=== PATIENT | female | born 1980 | race Caucasian/White ===

== ENCOUNTER 2020-11-22 04:51 | Emergency (ER) | payer BC, SELFPAY ==
--- NOTE | ~2020-11-22 | CT_ITS ---
EXAMINATION: CT ABDOMEN AND PELVIS WITHOUT CONTRAST CLINICAL INFORMATION: Flank pain, history of kidney stones. COMPARISON: CT abdomen and pelvis 09/23/2019 TECHNIQUE: Multidetector volumetric imaging was performed from the superior aspect of the liver through the pubic symphysis. Sagittal and coronal reformatted images were obtained on the technologist's workstation. This CT examination was performed using dose optimization techniques as appropriate, variously including the following: *Automated exposure control *Adjustment of mA and/or kV according to patient size (this includes techniques or standardized protocols for targeted exams where dose is matched to indication/reason for exam; i.e. extremities or head) *Use of iterative reconstruction technique DLP: 779.5 mGy-cm FINDINGS: LUNG BASES: The visualized lung bases are unremarkable. LIVER, GALLBLADDER, AND BILIARY TREE: The liver is normal in size, shape, and attenuation. No focal hepatic lesion or biliary ductal dilatation is present. Gallbladder is unremarkable and there are no radiopaque gallstones. PANCREAS: Unremarkable. SPLEEN: Unremarkable. ADRENAL GLANDS: Unremarkable. KIDNEYS AND URETERS: There is mild right hydroureteronephrosis. There is a 4 x 2 mm calculus just beyond or at the right ureterovesicular junction. No other renal calculi are identified. No renal lesions are present. There is no perinephric stranding. BLADDER: As noted above there is a 4 x 2 mm right bladder calculus which is either at or just beyond the ureterovesicular junction. GASTROINTESTINAL TRACT: Distal esophagus and stomach are unremarkable. The small and large bowel are nondilated. There is a normal appendix. There is no pericolonic inflammatory change or bowel inflammatory change. ABDOMINAL WALL: No significant hernia is appreciated. LYMPH NODES: Normal. VASCULAR: Unremarkable. PELVIC VISCERA: Unremarkable. OSSEOUS STRUCTURES: Mild degenerative change at the L5-S1 level. No acute or aggressive bony abnormality. CT/CT abdomen pelvis wo con IMPRESSION: Mild right hydroureteronephrosis with a 4 x 2 mm calculus just beyond or at the right ureterovesicular junction.
[2020-11-22 05:32] VITALS: BP 117/68; PULSE 83; RESP 20; TEMP 36.6; O2SAT 97; BMI 35.2
[2020-11-22 06:06] LABS: MANUAL DIFF FLAG NO
[2020-11-22 06:07] LABS: Basophils Percent Auto 0.2 % (0-2); Eosinophils Absolute Auto 0.2 X10*3/uL (0.0-0.4); Eosinophils Percent Auto 2.2 % (0-4); Hematocrit 44.4 % (37-47); Hemoglobin 14.6 g/dl (12.0-16.0); Imm Gran Abs Auto 0.03 X10*3/uL (0.00-0.03); Imm Gran Pct Auto 0.3 % (0.0-0.4); Lymphocytes Percent Auto 23.7 % (20-40); Mean Corpuscular HGB Conc 32.9 g/dl (31.0-35.0); Mean Corpuscular Hemoglobin 29.7 pg (27.0-33.0); Mean Corpuscular Volume 90.4 fL (80-98); Mean Platelet Volume 8.7 fL (9.4-12.3); Monocytes Absolute Auto 0.7 X10*3/uL (0.1-1.2); Monocytes Percent Auto 7.7 % (2-11); Neutrophils Absolute Auto 5.7 X10*3/uL (2.0-8.3); Neutrophils Percent Auto 65.9 % (45-73); Platelet Count 344 X10*3/uL (160-400); Red Blood Count 4.91 X10*6/uL (4.20-5.50); Red Cell Distribution Width 12.6 % (11.0-16.0); White Blood Count 8.6 X10*3/uL (4.8-10.8)
[2020-11-22 06:20] LABS: Appearance Urine HAZY; Color Urine YELLOW; Glucose Urine UA NEG (NEG); Leukocyte Esterase Urine NEG (NEG); Nitrite Urine NEG (NEG); Specific Gravity - Urine >= 1.030 (1.005-1.025); Urine Blood 2+ (NEG); Urine Ketones NEG (NEG); Urine Protein NEG (NEG-TRACE)
[2020-11-22 06:30] LABS: Bacteria Urine 2+ /LPF; Calcium Oxalate Crystals Urine 2+ /LPF; Mucus Urine 2+ /LPF; Squamous Epithelial Cell Urine 3+ /LPF
--- NOTE | 2020-11-22 06:35 | ED.ABDPAIN ---
HPI - Abdominal Pain General Chief Complaint: Abdominal Pain Stated Complaint: kidney stones Time Seen by Provider: 11/22/20 06:35 Source: patient Mode of arrival: ambulatory Limitations: no limitations History of Present Illness HPI narrative: 40 yo female hx of kidney stones requiring ESWL in the past at this time c/o sharp R flank pain sudden onset with n/v and urinary symptoms feels like a prior stone MD elicited complaint: flank pain Pertinent past history: kidney stones Onset (ago): hour(s) Pain Consistency: constant Location: R flank Severity: severe Quality: stabbing Radiation: none Migration to: no migration Exacerbating factors: nothing Relieving factors: nothing Associated symptoms: nausea, vomiting, diarrhea and dysuria Related Data Previous Rx's Medication Instructions Recorded ondansetron 4 mg PO Q8H PRN #20 tab 11/22/20 oxycodone 5 mg PO Q6H PRN #20 tab 11/22/20 prednisone 40 mg PO DAILY 5 Days #10 tab 11/22/20 tamsulosin 0.4 mg PO DAILY 7 Days #7 cap 11/22/20 Allergies Allergy/AdvReac Type Severity Reaction Status Date / Time No Known Allergies Allergy Unverified 11/22/20 05:31 [No Known Allergies*] Review of Systems Review of Systems Constitutional : No Weight loss, No Fever, No Chills ENT/Mouth : No sore throat, No Rhinorrhea Eyes: No Swelling, No Redness Cardiovascular : No Chest Pain, No SOB, NoEdema Respiratory : No Cough, No Sputum, No Wheezing Gastrointestinal : Positive Nausea, Positive Vomiting, positive Diarrhea, positive abdominal Pain, No Hematochezia, No Melena Genitourinary : pos Dysuria, No Urinary Frequency, No Hematuria, No Urgency Musculoskeletal : No joint pain, No Myalgias, No Joint Swelling Skin : No Skin Lesions, No rash Neuro : No Weakness, No Numbness, No Dizziness, No Headache Psych : No Anxiety/Panic, No Depression Heme/Lymph: No Bruising, No Lymphadenopathy Endocrine : No Polyuria, No Polydipsia All other systems reviewed and are negative. Physical Exam Vital Signs: Vital Signs: Last Vital Signs Temp 97.9 F 11/22/20 05:32 Pulse 69 11/22/20 07:05 Resp 20 11/22/20 05:32 BP 109/80 11/22/20 07:05 Pulse Ox 96 11/22/20 07:05 Body Mass Index 35.2 Appearance: Alert. Oriented X3. No acute distress. Eyes: Pupils equal, round and reactive to light. ENT: Pharynx normal. Neck: Normal inspection. Neck supple. CVS: Normal heart rate and rhythm. Pulses normal. Respiratory: No respiratory distress. Breath sounds normal. Abdomen: Soft and mild R sided ttp no rebound or guarding Back: mild R CVA ttp Skin: Skin warm and dry. Normal skin color. Normal skin turgor. Extremities: No lower extremity edema. No calf ttp Neuro: Oriented X 3. No motor deficit. No sensory deficit. Course Course Course Narrative: stone at UVJ - pain well controlled, will attempt to pass at home, stable for DC MDM - Abdominal Pain MDM Narrative Medical decision making narrative: 40 yo female hx of kidney stones requiring ESWL in the past at this time c/o sharp R flank pain sudden onset with n/v and urinary symptoms feels like a prior stone at this time labs, UA, CT scan for renal colic, IV zofran/toradol for pain, dispo per results and findings. Differential Diagnosis Differential diagnosis: Likely abdominal pain, calculus of kidney, constipation, diverticulitis and renal colic; Unlikely acute appendicitis Lab Data Result diagrams: 11/22/20 06:01 11/22/20 06:01 Labs: Lab Results 11/22/20 11/22/20 11/22/20 Range/Units 06:01 06:01 06:01 WBC 8.6 (4.8-10.8) X10*3/uL RBC 4.91 (4.20-5.50) X10*6/uL Hgb 14.6 (12.0-16.0) g/dl Hct 44.4 (37-47) % MCV 90.4 (80-98) fL MCH 29.7 (27.0-33.0) pg MCHC 32.9 (31.0-35.0) g/dl RDW 12.6 (11.0-16.0) % Plt Count 344 (160-400) X10*3/uL MPV 8.7 L (9.4-12.3) fL Immature Gran % (Auto) 0.3 (0.0-0.4) % Neut % (Auto) 65.9 (45-73) % Lymph % (Auto) 23.7 (20-40) % [place] % (Auto) 7.7 (2-11) % Eos % (Auto) 2.2 (0-4) % Baso % (Auto) 0.2 (0-2) % Lymph # (Auto) 2.0 (1.2-4.9) X10*3/uL [place] # (Auto) 0.7 (0.1-1.2) X10*3/uL Eos # (Auto) 0.2 (0.0-0.4) X10*3/uL Baso # (Auto) 0.0 (0.0-0.2) X10*3/uL Abs Immat Gran (auto) 0.03 (0.00-0.03) X10*3/uL Absolute Neuts (auto) 5.7 (2.0-8.3) X10*3/uL Absolute Nucleated RBC 0.000 (0.0-0.012) X10*3/uL Nucleated RBC % (auto) 0.0 (0.0-0.2) /100WBC Hold Blue Top SEE NOTE Sodium 141 (135-145) mmol/L Potassium 4.6 (3.3-5.1) mmol/L Chloride 108 (96-108) mmol/L Carbon Dioxide 28 (22-29) mmol/L Anion Gap 10 L (12-20) BUN 19 H (9-16) mg/dL Creatinine 0.91 (0.5-1.4) mg/dL Estim Creat Clear Calc 84.2 Estimated GFR > 60 Random Glucose 82 (60-115) mg/dL Calcium 9.7 (8.4-10.2) mg/dL Total Bilirubin 0.4 (0.0-1.0) mg/dL AST 18 (5-31) U/L ALT 15 (0-31) U/L Alkaline Phosphatase 101 (39-117) U/L Total Protein 7.1 (6.5-8.0) g/dL Albumin 4.4 (3.5-5.0) g/dL Urine Color Urine Appearance Urine pH (5.0-8.0) Ur Specific [place] (1.005-1.025) Urine Protein (NEG-TRACE) MG/DL Urine Glucose (UA) (NEG) MG/DL Urine Ketones (NEG) MG/DL Urine Blood (NEG) Urine Nitrite (NEG) Ur Leukocyte Esterase (NEG) Urine RBC (0) /HPF Urine WBC (0-4) /HPF Ur Squamous Epith Cells /LPF Calcium Oxalate Crystal /LPF Urine Bacteria /LPF Urine Mucus /LPF 11/22/20 Range/Units 06:15 WBC (4.8-10.8) X10*3/uL RBC (4.20-5.50) X10*6/uL Hgb (12.0-16.0) g/dl Hct (37-47) % MCV (80-98) fL MCH (27.0-33.0) pg MCHC (31.0-35.0) g/dl RDW (11.0-16.0) % Plt Count (160-400) X10*3/uL MPV (9.4-12.3) fL Immature Gran % (Auto) (0.0-0.4) % Neut % (Auto) (45-73) % Lymph % (Auto) (20-40) % [place] % (Auto) (2-11) % Eos % (Auto) (0-4) % Baso % (Auto) (0-2) % Lymph # (Auto) (1.2-4.9) X10*3/uL [place] # (Auto) (0.1-1.2) X10*3/uL Eos # (Auto) (0.0-0.4) X10*3/uL Baso # (Auto) (0.0-0.2) X10*3/uL Abs Immat Gran (auto) (0.00-0.03) X10*3/uL Absolute Neuts (auto) (2.0-8.3) X10*3/uL Absolute Nucleated RBC (0.0-0.012) X10*3/uL Nucleated RBC % (auto) (0.0-0.2) /100WBC Hold Blue Top Sodium (135-145) mmol/L Potassium (3.3-5.1) mmol/L Chloride (96-108) mmol/L Carbon Dioxide (22-29) mmol/L Anion Gap (12-20) BUN (9-16) mg/dL Creatinine (0.5-1.4) mg/dL Estim Creat Clear Calc Estimated GFR Random Glucose (60-115) mg/dL Calcium (8.4-10.2) mg/dL Total Bilirubin (0.0-1.0) mg/dL AST (5-31) U/L ALT (0-31) U/L Alkaline Phosphatase (39-117) U/L Total Protein (6.5-8.0) g/dL Albumin (3.5-5.0) g/dL Urine Color YELLOW Urine Appearance HAZY Urine pH 6.0 (5.0-8.0) Ur Specific [place] >= 1.030 H (1.005-1.025) Urine Protein NEG (NEG-TRACE) MG/DL Urine Glucose (UA) NEG (NEG) MG/DL Urine Ketones NEG (NEG) MG/DL Urine Blood 2+ H (NEG) Urine Nitrite NEG (NEG) Ur Leukocyte Esterase NEG (NEG) Urine RBC 1-4 (0) /HPF Urine WBC 1-4 (0-4) /HPF Ur Squamous Epith Cells 3+ /LPF Calcium Oxalate Crystal 2+ /LPF Urine Bacteria 2+ /LPF Urine Mucus 2+ /LPF Discharge Plan Discharge Clinical Impression: Ureterolithiasis Patient Disposition: Home, Self-Care Instructions: Ureteral Stones (ED) Additional Instructions: return to ED for any worsening symptoms or concerns Prescriptions: New prednisone 20 mg tablet 40 mg PO DAILY 5 Days Qty: 10 RF: 0 tamsulosin 0.4 mg capsule 0.4 mg PO DAILY 7 Days Qty: 7 RF: 0 ondansetron 4 mg tablet,disintegrating 4 mg PO Q8H PRN (Reason: nausea and vomiting) Qty: 20 RF: 0 oxycodone 5 mg tablet 5 mg PO Q6H PRN (Reason: pain) Qty: 20 RF: 0 Referrals: Rio Styles MD [Physician] - 5 days [facility] Past Medical History Attestation statement: The following information was validated with the patient. Medical History (Updated 11/22/20 @ 09:24 by Michelle Sweeney DO) Hernia Renal colic Surgical History (Updated 11/22/20 @ 07:01 by Michelle Sweeney DO) H/O lithotripsy Social History Social History (Updated 11/22/20 @ 07:01 by Michelle Sweeney DO) Alcohol intake: never Patient Tobacco Use Status: Never used Tobacco Advance Directives: No Advance Directives Information Provided: No
[2020-11-22 06:46] LABS: Alanine Aminotransferase 15 U/L (0-31); Albumin Level 4.4 g/dL (3.5-5.0); Alkaline Phosphatase 101 U/L (39-117); Anion Gap 10 (12-20); Aspartate Amino Transferase 18 U/L (5-31); Bilirubin Total 0.4 mg/dL (0.0-1.0); Blood Urea Nitrogen 19 mg/dL (9-16); Calcium 9.7 mg/dL (8.4-10.2); Carbon Dioxide 28 mmol/L (22-29); Chloride 108 mmol/L (96-108); Creatinine Clr Calc Pharmacy 84.2; Estimated Glomerular Filt Rate > 60; Glucose Random 82 mg/dL (60-115); Potassium 4.6 mmol/L (3.3-5.1); Sodium 141 mmol/L (135-145); Total Protein 7.1 g/dL (6.5-8.0)
[2020-11-22 07:05] VITALS: BP 109/80; PULSE 69; O2SAT 96
[2020-11-22] MEDS: ondansetron HCL 4 MG/2 ML VIAL IVPUSH (07:09)
[2020-11-22] MEDS: Ketorolac Tromethamine 30 MG/ML VIAL IVPUSH (07:09)
--- NOTE | 2020-11-22 07:14 | PC.NURSE ---
report taken from Leonides LANCE. Pt in bed resting quietly. IV Toradol and Zofran given for 8/10 abdominal pain. pt awaiting results of CT scan.
[2020-11-22] MEDS: Morphine Sulfate 4 MG/ML CARTRIDGE IVPUSH (08:10)
[2020-11-22] MEDS: Tamsulosin HCL 0.4 MG CAPSULE PO (09:11)
[2020-11-22] MEDS: methylPREDNISolone Sod Succ 125 MG/2 ML VIAL IVPUSH (09:11)
[2020-11-22] MEDS: oxyCODONE HCl Immed Release 5 MG TABLET 10 MG PO (09:49)
== END 2020-11-22 09:57 | disposition home or self-care (01) ==
PROVIDERS: Emergency Provider Emergency Medicine
DX: N20.1 Calculus of ureter (principal); Z87.442 Personal history of urinary calculi
CPT/HCPCS: 36415; 74176; 80053; 81001; 85025; 96374; 96375; 99284; J1885; J2270; J2405; J2930

== ENCOUNTER 2020-11-25 11:32 | Inpatient (IN) | payer BC, SELFPAY ==
[2020-11-25] VITALS (8 sets, daily range): BP systolic 103–135; BP diastolic 62–79; PULSE 68–103; RESP 16–22; TEMP 36.6–37.2; O2SAT 95–100; BMI 35.6
--- NOTE | ~2020-11-25 | FL_ITS ---
EXAMINATION: XR FLUOROSCOPY WITH IMAGES CLINICAL INFORMATION: Right UVJ stone COMPARISON: Previous CT of the abdomen and pelvis and right renal ultrasound from earlier this month TECHNIQUE: Fluoroscopy performed by Dr. Rio Styles. Fluoroscopy time: 19 seconds DAP: 8.7 mGycm2 Images: 4 FINDINGS: Fluoroscopy guidance was provided for right retrograde exam and stent placement. Images demonstrate mild dilatation of the right renal collecting system and placement of an internal right ureteral stent in satisfactory position. FL/FL guidance in OR IMPRESSION: Fluoroscopy guidance for right retrograde exam and internal ureteral stent placement.
--- NOTE | ~2020-11-25 | US_ITS ---
EXAMINATION: RENAL ULTRASOUND. CLINICAL INFORMATION: History of kidney stone at the UVJ x3 days ago. Worsening pain and fever COMPARISON: CT abdomen and pelvis 11/22/2020 TECHNIQUE: Limited ultrasound imaging of right kidney was performed FINDINGS: The right kidney measures 11.3 x 6.1 x 5.3 cm. There is normal cortical thickness. Normal echo differentiation in kidney cortex and medulla. There is echogenic stone in the midpole measuring 0.3 x 0.2 cm without caliectasis. No hydronephrosis seen. Imaging through the pelvis reveals a small echogenic right UVJ stone measuring 0.7 x 0.4 0.9 cm. Both ureteral jets are not seen. The bladder is nondistended. US/US renal RT IMPRESSION: Small nonobstructive echogenic calculi midpole right kidney without caliectasis. Partially obstructive right UVJ stone measuring 0.7 x 0.4 x 0.9 cm. The findings are concordant with the preceding CT abdomen exam 11/22/2020
[2020-11-25] MEDS: 0.9 % Sodium Chloride 1,000 ML 999 ML IVCONT (12:23)
[2020-11-25 12:24] LABS: Glucose Urine UA NEG (NEG); Leukocyte Esterase Urine TRACE (NEG); Nitrite Urine NEG (NEG); Specific Gravity - Urine 1.025 (1.005-1.025); UACC Culture Trigger YES; Urine Blood NEG (NEG); Urine Ketones 5 MG/DL (NEG); Urine Protein NEG (NEG-TRACE)
[2020-11-25 12:28] LABS: Basophils Percent Auto 0.1 % (0-2); Hematocrit 42.5 % (37-47); Hemoglobin 14.1 g/dl (12.0-16.0); Imm Gran Abs Auto 0.16 X10*3/uL (0.00-0.03); Imm Gran Pct Auto 1.1 % (0.0-0.4); Lymphocytes Absolute Auto 1.9 X10*3/uL (1.2-4.9); Lymphocytes Percent Auto 12.8 % (20-40); MANUAL DIFF FLAG NO; Mean Corpuscular HGB Conc 33.2 g/dl (31.0-35.0); Mean Corpuscular Hemoglobin 29.9 pg (27.0-33.0); Mean Corpuscular Volume 90.2 fL (80-98); Mean Platelet Volume 9.1 fL (9.4-12.3); Monocytes Absolute Auto 0.5 X10*3/uL (0.1-1.2); Monocytes Percent Auto 3.3 % (2-11); Neutrophils Absolute Auto 12.1 X10*3/uL (2.0-8.3); Neutrophils Percent Auto 82.7 % (45-73); Platelet Count 343 X10*3/uL (160-400); Red Blood Count 4.71 X10*6/uL (4.20-5.50); Red Cell Distribution Width 12.6 % (11.0-16.0); White Blood Count 14.7 X10*3/uL (4.8-10.8)
[2020-11-25 12:31] LABS: Appearance Urine HAZY; Color Urine YELLOW
[2020-11-25 12:32] LABS: Bacteria Urine 2+ /LPF; Calcium Oxalate Crystals Urine TRACE /LPF; Mucus Urine 1+ /LPF; RBC Urine 0 /HPF (0); Squamous Epithelial Cell Urine 3+ /LPF
--- NOTE | 2020-11-25 12:33 | ED.ABDPAIN ---
HPI - Abdominal Pain General Chief Complaint: Abdominal Pain Stated Complaint: Kidney stones Time Seen by Provider: 11/25/20 11:50 Source: patient Mode of arrival: ambulatory Limitations: no limitations History of Present Illness HPI narrative: 40-year-old female with a past medical history of kidney stones presenting to the ED with worsening pain with associated fevers, nausea and constipation for the past 4 days worse today. She was seen here 4 days ago and had a CT scan of abdomen pelvis which revealed the 4 x 2 mm calculus just beyond the right UVJ. She reports she has not passed the stone. Reports her last bowel movement was 4 days ago. MD elicited complaint: abdominal pain and flank pain Pertinent past history: kidney stones Onset (ago): day(s) ( 3 days ago worse today) Pain Consistency: constant Location: RLQ, R flank, suprapubic, pelvis and groin Severity: severe Pain scale (0-10): 10 Quality: aching and sharp Exacerbating factors: nothing Relieving factors: nothing Associated symptoms: nausea and constipation Related Data Patient : No Previous Rx's Medication Instructions Recorded ondansetron 4 mg PO Q8H PRN #20 tab 11/22/20 oxycodone 5 mg PO Q6H PRN #20 tab 11/22/20 prednisone 40 mg PO DAILY 5 Days #10 tab 11/22/20 tamsulosin 0.4 mg PO DAILY 7 Days #7 cap 11/22/20 Allergies Allergy/AdvReac Type Severity Reaction Status Date / Time No Known Allergies Allergy Verified 11/25/20 12:22 [No Known Allergies*] Review of Systems Review of Systems Constitutional : positive fevers/chills,No Weight loss, No Night Sweats, No Fatigue, No Malaise ENT/Mouth: No ear pain, No sore throat, No Difficulty swallowing Cardiovascular : No Chest Pain, No SOB, No Dyspnea on Exertion, No Orthopnea, NoEdema, No Palpitations Respiratory : No Cough, No Sputum, No Wheezing, No Dyspnea Gastrointestinal : Positive nausea/ right flank /right lower quadrant / right pelvic / right suprapubic abdominal pain / constipation, No Vomiting, No abdominal pain, No Diarrhea, No blood streaked emesis, No coffee-ground emesis, No gross hematemesis, No blood streak stool, No gross hematochezia, No Melena Genitourinary : No irregular bleeding, No Dysuria, No Urinary Frequency, No Hematuria,No Urinary Incontinence, No Urgency, No Flank Pain Musculoskeletal : No joint pain, No Myalgias, No Joint Swelling Skin : No Skin Lesions, No rash Neuro : No Weakness, No Numbness, No Paresthesias, No Loss of Consciousness, NoDizziness, No Headache Psych : No Social Issues, Heme/Lymph: No Bruising, No Bleeding,No Lymphadenopathy Endocrine : No Polyuria, No Polydipsia, No Temperature Intolerance Yes all other systems are reviewed and are negative Physical Exam Vital Signs: Vital Signs: Last Vital Signs Temp 98.5 F 11/25/20 11:44 Pulse 103 H 11/25/20 12:00 Resp 16 11/25/20 12:00 BP 135/79 11/25/20 12:00 Pulse Ox 99 11/25/20 12:00 Body Mass Index 35.6 vital signs have been reviewed as normal and appeared to be correct. Blood pressure normal. Heart rate Tachycardic. Respiration rate normal. Temperature normal. Oxygen saturation normal. Appearance: Alert. Oriented X3. No acute distress. Head: Normal external exam. Normocephalic. Eyes: PERRLA. EOMI. Conjunctiva and sclera normal. Eyelids normal. ENT: Pharynx normal. Uvula midline. Moist mucous membranes. Neck: Normal inspection. Neck supple. FROM. No adenopathy. No meningeal signs. CVS: Normal heart rate and rhythm. Heart sound normal. No murmurs noted. Pulses normal throughout. Respiratory: No respiratory distress. Painless inspiration. Breath sounds normal. No wheezes/rales/rhonchi noted. Chest nontender. No accessory muscle usage noted or decreased air movement noted. Abdomen: Soft and tenderness to palpation to right flank /right lower quadrant / right suprapubic area. Nondistended. No guarding. No rigidity. Bowel sounds normal in all 4 quadrants. No distention noted. No organomegaly noted. No visible injury noted. No rebound tenderness. Negative Rovsing sign. Negative obturator's sign. Negative psoas sign. Negative Puentes sign. Back: Positive RCVA Tenderness. No LCVA tenderness. Full range of motion noted. Skin: Skin warm and dry. Normal skin color. Normal skin turgor. No rashes/lesions/lacerations noted. Extremities: Extremities exhibit normal range of motion. Extremities nontender. Neuro: Oriented X 3. No motor deficit. No sensory deficit. Reflexes normal. Normal steady gait. Course Course Course Narrative: 12:10pm - 40-year-old female presenting to the ED with complaints of worsening right flank/right lower quadrant / right suprapubic area with associated nausea and constipation for the past 4 days. Seen here 4 days ago and had a 4 by 2 mm calculus at the UVJ right-sided. Reports associated Fever that started overnight. Plan: Labs, IV fluids, blood cultures, lactic acid. Renal/bladder ultrasound. 4 mg of Zofran, 4 mg of morphine and 30 mg of Toradol then re-evaluate. Reevaluation(s) Reevaluation #1: - [place] [address]. BUN 18. Random glucose 160. Otherwise other labs are within normal limits. Trace of leukocytes on UA. serum quant for negative. Ultrasound revealed small nonobstructive echogenic calculi midpole right kidney without caliectasis. Partially obstructive right UVJ stone measuring 0.7 x 0.4 x 0.9 cm. The findings are concordant with the preceding CT abdomen exam 11/22/2020. - patient given 2 g of Rocephin. - therefore plan will be to admit for pain management, UTI/sepsis and possible stent placement with Dr. Styles. Consulted with Dr. Styles who will admit at this time. Patient understands agrees with this plan. Time: 13:52 [facility] - Abdominal Pain Medical Records Attestation: I reviewed the patient's medical records. Lab Data Attestation: I reviewed the patient's lab results. Result diagrams: 11/25/20 12:21 11/25/20 12:21 Labs: Lab Results 11/25/20 11/25/20 11/25/20 Range/Units 12:11 12:21 12:21 WBC 14.7 H (4.8-10.8) X10*3/uL RBC 4.71 (4.20-5.50) X10*6/uL Hgb 14.1 (12.0-16.0) g/dl Hct 42.5 (37-47) % MCV 90.2 (80-98) fL MCH 29.9 (27.0-33.0) pg MCHC 33.2 (31.0-35.0) g/dl RDW 12.6 (11.0-16.0) % Plt Count 343 (160-400) X10*3/uL MPV 9.1 L (9.4-12.3) fL Immature Gran % (Auto) 1.1 H (0.0-0.4) % Neut % (Auto) 82.7 H (45-73) % Lymph % (Auto) 12.8 L (20-40) % [place] % (Auto) 3.3 (2-11) % Eos % (Auto) 0.0 (0-4) % Baso % (Auto) 0.1 (0-2) % Lymph # (Auto) 1.9 (1.2-4.9) X10*3/uL [place] # (Auto) 0.5 (0.1-1.2) X10*3/uL Eos # (Auto) 0.0 (0.0-0.4) X10*3/uL Baso # (Auto) 0.0 (0.0-0.2) X10*3/uL Abs Immat Gran (auto) 0.16 H (0.00-0.03) X10*3/uL Absolute Neuts (auto) 12.1 H (2.0-8.3) X10*3/uL Absolute Nucleated RBC 0.000 (0.0-0.012) X10*3/uL Nucleated RBC % (auto) 0.0 (0.0-0.2) /100WBC PT 10.7 L (10.8-13.0) SEC INR 0.9 (0.9-1.1) Sodium (135-145) mmol/L Potassium (3.3-5.1) mmol/L Chloride (96-108) mmol/L Carbon Dioxide (22-29) mmol/L Anion Gap (12-20) BUN (9-16) mg/dL Creatinine (0.5-1.4) mg/dL Estim Creat Clear Calc Estimated GFR Random Glucose (60-115) mg/dL Lactic Acid (0.5-2.0) mmol/L Calcium (8.4-10.2) mg/dL Magnesium (1.6-2.6) mg/dL Total Bilirubin (0.0-1.0) mg/dL AST (5-31) U/L ALT (0-31) U/L Alkaline Phosphatase (39-117) U/L Total Protein (6.5-8.0) g/dL Albumin (3.5-5.0) g/dL Beta HCG, Quant mIU/mL Urine Color YELLOW Urine Appearance HAZY Urine pH 6.0 (5.0-8.0) Ur Specific [place] 1.025 (1.005-1.025) Urine Protein NEG (NEG-TRACE) MG/DL Urine Glucose (UA) NEG (NEG) MG/DL Urine Ketones 5 (NEG) MG/DL Urine Blood NEG (NEG) Urine Nitrite NEG (NEG) Ur Leukocyte Esterase TRACE H (NEG) Urine RBC 0 (0) /HPF Urine WBC 1-4 (0-4) /HPF Ur Squamous Epith Cells 3+ /LPF Calcium Oxalate Crystal TRACE /LPF Urine Bacteria 2+ /LPF Urine Mucus 1+ /LPF 11/25/20 11/25/20 11/25/20 Range/Units 12:21 12:21 12:51 WBC (4.8-10.8) X10*3/uL RBC (4.20-5.50) X10*6/uL Hgb (12.0-16.0) g/dl Hct (37-47) % MCV (80-98) fL MCH (27.0-33.0) pg MCHC (31.0-35.0) g/dl RDW (11.0-16.0) % Plt Count (160-400) X10*3/uL MPV (9.4-12.3) fL Immature Gran % (Auto) (0.0-0.4) % Neut % (Auto) (45-73) % Lymph % (Auto) (20-40) % [place] % (Auto) (2-11) % Eos % (Auto) (0-4) % Baso % (Auto) (0-2) % Lymph # (Auto) (1.2-4.9) X10*3/uL [place] # (Auto) (0.1-1.2) X10*3/uL Eos # (Auto) (0.0-0.4) X10*3/uL Baso # (Auto) (0.0-0.2) X10*3/uL Abs Immat Gran (auto) (0.00-0.03) X10*3/uL Absolute Neuts (auto) (2.0-8.3) X10*3/uL Absolute Nucleated RBC (0.0-0.012) X10*3/uL Nucleated RBC % (auto) (0.0-0.2) /100WBC PT (10.8-13.0) SEC INR (0.9-1.1) Sodium 138 (135-145) mmol/L Potassium 4.2 (3.3-5.1) mmol/L Chloride 107 (96-108) mmol/L Carbon Dioxide 23 (22-29) mmol/L Anion Gap 12 (12-20) BUN 18 H (9-16) mg/dL Creatinine 0.81 (0.5-1.4) mg/dL Estim Creat Clear Calc 95.4 Estimated GFR > 60 Random Glucose 167 H D (60-115) mg/dL Lactic Acid 2.0 (0.5-2.0) mmol/L Calcium 9.6 (8.4-10.2) mg/dL Magnesium 2.0 (1.6-2.6) mg/dL Total Bilirubin 0.5 (0.0-1.0) mg/dL AST 15 (5-31) U/L ALT 12 (0-31) U/L Alkaline Phosphatase 90 (39-117) U/L Total Protein 6.9 (6.5-8.0) g/dL Albumin 4.3 (3.5-5.0) g/dL Beta HCG, Quant < 2 mIU/mL Urine Color Urine Appearance Urine pH (5.0-8.0) Ur Specific [place] (1.005-1.025) Urine Protein (NEG-TRACE) MG/DL Urine Glucose (UA) (NEG) MG/DL Urine Ketones (NEG) MG/DL Urine Blood (NEG) Urine Nitrite (NEG) Ur Leukocyte Esterase (NEG) Urine RBC (0) /HPF Urine WBC (0-4) /HPF Ur Squamous Epith Cells /LPF Calcium Oxalate Crystal /LPF Urine Bacteria /LPF Urine Mucus /LPF Imaging Data renal/bladder ultrasound: Attestation: I personally reviewed and interpreted this imaging study as follows: Radiologist's impression: FINDINGS: The right kidney measures 11.3 x 6.1 x 5.3 cm. There is normal cortical thickness. Normal echo differentiation in kidney cortex and medulla. There is echogenic stone in the midpole measuring 0.3 x 0.2 cm without caliectasis. No hydronephrosis seen. Imaging through the pelvis reveals a small echogenic right UVJ stone measuring 0.7 x 0.4 0.9 cm. Both ureteral jets are not seen. The bladder is nondistended. US/US renal RT IMPRESSION: Small nonobstructive echogenic calculi midpole right kidney without caliectasis. Partially obstructive right UVJ stone measuring 0.7 x 0.4 x 0.9 cm. The findings are concordant with the preceding CT abdomen exam 11/22/2020 Critical Care Time Critical Care Time Critical Care Time: Yes Total Critical Care Time: 60 Attestation: I personally attest to this time spent taking care of the patient Discharge Plan Discharge Clinical Impression: Ureterolithiasis, UTI (urinary tract infection), Sepsis Patient Disposition: Admitted As Inpatient [facility] [place] Past Medical History Attestation statement: The following information was validated with the patient. Medical History Hernia Renal colic Surgical History H/O lithotripsy Social History Social History Alcohol intake: current Alcohol intake frequency: holidays/special occasions only Patient Tobacco Use Status: Never used Tobacco Use of substances other than those prescribed or required for medical reasons: Yes Substance Use Type: Marijuana Advance Directives: No Advance Directives Information Provided: No Patient : No
[2020-11-25 12:38] LABS: INTERNATIONAL NORM RATIO 0.9 (0.9-1.1); Prothrombin Time 10.7 SEC (10.8-13.0)
[2020-11-25] MEDS: Ketorolac Tromethamine 30 MG/ML VIAL IVPUSH ×2 (12:38→22:34)
[2020-11-25] MEDS: Morphine Sulfate 4 MG/ML CARTRIDGE IVPUSH (12:38)
[2020-11-25] MEDS: ondansetron HCL 4 MG/2 ML VIAL IVPUSH ×2 (12:38→14:31)
[2020-11-25 12:48] LABS: Alanine Aminotransferase 12 U/L (0-31); Albumin Level 4.3 g/dL (3.5-5.0); Alkaline Phosphatase 90 U/L (39-117); Anion Gap 12 (12-20); Aspartate Amino Transferase 15 U/L (5-31); Bilirubin Total 0.5 mg/dL (0.0-1.0); Blood Urea Nitrogen 18 mg/dL (9-16); Calcium 9.6 mg/dL (8.4-10.2); Carbon Dioxide 23 mmol/L (22-29); Chloride 107 mmol/L (96-108); Creatinine Clr Calc Pharmacy 95.4; Estimated Glomerular Filt Rate > 60; Glucose Random 167 mg/dL (60-115); Potassium 4.2 mmol/L (3.3-5.1); Sodium 138 mmol/L (135-145); Total Protein 6.9 g/dL (6.5-8.0)
[2020-11-25 12:55] LABS: HCG Quantitative < 2 mIU/mL
[2020-11-25] MEDS: cefTRIAXone sodium 2 GM in 0.9 % Sodium Chloride 50 ML IV (13:58)
[2020-11-25] MEDS: HYDROmorphone HCl 1 MG/ML SYRINGE IVPUSH ×2 (14:31→17:35)
[2020-11-25 14:44] LABS: COVID-19 Test Negative (Negative); IDNOW Serial# 9DD0AD1C
[2020-11-25] MEDS: Metoclopramide HCl 10 MG/2 ML VIAL IVPUSH (17:35)
[2020-11-25] MEDS: levoFLOXacin/D5W 500 MG/100 ML PIGGYBACK 100 MG IV (17:57)
[2020-11-25] MEDS: 0.9 % Sodium Chloride 1,000 ML 100 ML IVCONT (18:49)
[2020-11-25] MEDS: Morphine Sulfate 4 MG/ML CARTRIDGE 2 MG IVPUSH (20:27)
[2020-11-26] VITALS (14 sets, daily range): BP systolic 95–135; BP diastolic 55–85; PULSE 61–90; RESP 14–22; TEMP 35.9–37.1; O2SAT 94–99
[2020-11-26] MEDS: Morphine Sulfate 4 MG/ML CARTRIDGE IVPUSH ×7 (00:22→22:53)
[2020-11-26] MEDS: 0.9 % Sodium Chloride 1,000 ML 100 ML IVCONT ×3 (03:11→16:22)
--- NOTE | 2020-11-26 05:25 | PC.NURSE ---
ADMIT TO 461-1...ALERT..ORIENTED X3...VSS...MED-SURG STATUS..NS 0.9% 100 CC/HR...OOB STEADY GAIT TO VOID IN BR...C/O -12/08 RLQ ABDOMINAL PAIN 3AM...MEDICATED PRN MORPHINE WITH EFFECT..DOZING AFTERWARDS...AWARE OF NPO STATUS
[2020-11-26 06:40] LABS: MANUAL DIFF FLAG NO
[2020-11-26 06:50] LABS: Basophils Percent Auto 0.3 % (0-2); Eosinophils Absolute Auto 0.2 X10*3/uL (0.0-0.4); Eosinophils Percent Auto 1.9 % (0-4); Hematocrit 33.8 % (37-47); Hemoglobin 11.2 g/dl (12.0-16.0); Imm Gran Abs Auto 0.06 X10*3/uL (0.00-0.03); Imm Gran Pct Auto 0.6 % (0.0-0.4); Lymphocytes Percent Auto 37.5 % (20-40); Mean Corpuscular HGB Conc 33.1 g/dl (31.0-35.0); Mean Corpuscular Hemoglobin 30.4 pg (27.0-33.0); Mean Corpuscular Volume 91.8 fL (80-98); Mean Platelet Volume 9.1 fL (9.4-12.3); Monocytes Absolute Auto 0.8 X10*3/uL (0.1-1.2); Neutrophils Absolute Auto 5.7 X10*3/uL (2.0-8.3); Neutrophils Percent Auto 52.7 % (45-73); Platelet Count 266 X10*3/uL (160-400); Red Blood Count 3.68 X10*6/uL (4.20-5.50); Red Cell Distribution Width 12.9 % (11.0-16.0); White Blood Count 10.8 X10*3/uL (4.8-10.8)
[2020-11-26 07:46] LABS: Anion Gap 10 (12-20); Blood Urea Nitrogen 17 mg/dL (9-16); Carbon Dioxide 22 mmol/L (22-29); Chloride 112 mmol/L (96-108); Creatinine Clr Calc Pharmacy 108.8; Estimated Glomerular Filt Rate > 60; Glucose Random 86 mg/dL (60-115); Potassium 3.7 mmol/L (3.3-5.1); Sodium 140 mmol/L (135-145)
--- NOTE | 2020-11-26 08:44 | MHC.CM.PN ---
pt lives c her in their home. she reports being independent in her care. although her is able to help her should she have any needs. this will include a ride home at dc. 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 pt denies the need for vna at dc. dc plan is home no svcs. cm to cont. to follow.
[2020-11-26] MEDS: ondansetron HCL 4 MG/2 ML VIAL IVPUSH ×2 (09:32→18:23)
--- NOTE | 2020-11-26 13:49 | PM.HPGS ---
History of Present Illness History of Present Illness Date of Service: 11/26/20 Chief complaint: Distal ureteric stone Narrative: Tammy aGllardo is a 40 year old female recurrent stone former presents with pain up to 10/10 on the right side. No relief from oral pain medications. Unable to tolerate oral fluid intake. WBC 14.0, trace nitrites CT imaging shows small distal right ureteric stone with mild hydroureteronephrosis. Will admit for definitive stone procedure. Discussed ureteroscopy with stent placement which she is amenable to. Review of Systems Constitutional: Constitutional: Denies chills and Denies fever(s) Cardiovascular: Cardiovascular: Reports no additional cardiovascular complaints and Denies syncope Respiratory: Respiratory: Denies cough Gastrointestinal: Gastrointestinal: Denies abdominal pain and Denies heartburn Genitourinary: Genitourinary: Reports as per HPI and Denies change in libido Neurologic: Denies syncope Psychiatric: Psychiatric: Denies change in libido Endocrine: Endocrine: Denies change in libido [facility] Past Medical History Medical History Hernia Renal colic Surgical History Surgical History H/O lithotripsy Social History Social History Alcohol intake: current Alcohol intake frequency: holidays/special occasions only Patient Tobacco Use Status: Never used Tobacco Use of substances other than those prescribed or required for medical reasons: Yes Substance Use Type: Marijuana Currently Displaying Signs/Symptoms of Drug Intoxication Withdrawal: No Advance Directives: No Advance Directives Information Provided: No Do you have thoughts of harming others: None Do you have a plan to hurt others: No Plan Patient : No service: No Current occupational status: employed Meds Allergies Allergy/AdvReac Type Severity Reaction Status Date / Time No Known Allergies Allergy Verified 11/25/20 14:05 [No Known Allergies*] Active Medications: Current Medications Generic Name Dose Route Start Last Admin Trade Name Freq PRN Reason Stop Dose Admin Acetaminophen 650 mg 11/25/20 17:45 11/26/20 12:31 Acetaminophen Supp 650 Mg Supp.Rect NC Not Given Q6H [facility] Sodium Chloride 1,000 mls @ 100 mls/hr 11/25/20 17:45 11/26/20 12:29 Ns IVCONT 100 mls/hr .Q10H [facility] Administration Levofloxacin 500 mg in 100 mls @ 100 mls/hr 11/25/20 18:00 11/25/20 18:49 Levaquin IV Infused Q24H [facility] Infusion Ketorolac Tromethamine 30 mg 11/25/20 17:45 11/25/20 22:34 Ketorolac Tromethamine 30 Mg/Ml Vial IVPUSH 11/30/20 17:44 30 mg Q6H PRN Administration Pain, Mild (Pain Scale 1-3) Morphine Sulfate 4 mg 11/26/20 00:00 11/26/20 12:25 Morphine Sulfate 4 Mg/Ml Cartridge IVPUSH 4 mg Q3H PRN Administration Pain, Severe (Pain Scale 7-10) Ondansetron HCl 4 mg 11/25/20 17:41 11/26/20 09:32 Ondansetron Hcl 4 Mg/2 Ml Vial IVPUSH 4 mg Q8H PRN Administration Nausea and Vomiting Sodium Chloride 3 ml 11/26/20 00:00 11/26/20 08:01 0.9 % Sodium Chloride Flush 3 Ml Syringe IVFLUSH Not Given QSHIFT [facility] Home Medications Medication Instructions Recorded Confirmed Last Taken Type lisdexamfetamine [Vyvanse] 40 mg PO DAILY 11/25/20 11/25/20 Unknown History mirtazapine 60 mg PO BEDTIME 11/25/20 11/25/20 11/24/20 20:00 History Physical Exam Vital Signs: Vital Signs: Last Vital Signs Temp 97.3 F 11/26/20 08:00 Pulse 76 11/26/20 11:36 Resp 15 11/26/20 11:36 BP 117/76 11/26/20 11:36 Pulse Ox 97 11/26/20 11:36 Body Mass Index 35.6 Const: General: cooperative, healthy appearing, comfortable and no acute distress Orientation/consciousness: patient oriented x3 HENMT: Face and sinus: Yes normal facial exam Mouth: moist mucous membranes Neck: Neck: Yes normal visual inspection, Yes full ROM and Yes trachea midline Chest: Chest palpation & inspection: normal inspection of the chest Resp: Effort & Inspection: normal respiratory effort, able to speak in complete sentences and no respiratory distress GI: Inspection: Yes normal to inspection Back/Spine/Pelvis: Cervical Spine: normal cervical lordosis Thoracic/Lumbar Spine: thoracic and lumbar spine normal to inspection Skin: General skin exam: no rashes or lesions noted Neuro: General: patient oriented x3, gait normal, tone normal and moves all extremities Extrem: General: Yes normal to inspection and Yes capillary refill normal Results Results Labs: Short CBC 11/26/20 Range/Units 05:52 WBC 10.8 (4.8-10.8) X10*3/uL Hgb 11.2 L D (12.0-16.0) g/dl Hct 33.8 L D (37-47) % Plt Count 266 (160-400) X10*3/uL BMP 11/26/20 05:52 Sodium 140 Potassium 3.7 Chloride 112 H Carbon Dioxide 22 BUN 17 H Creatinine 0.71 Calcium 8.0 L D Urine 11/25/20 Range/Units 12:11 Urine Color YELLOW Urine Appearance HAZY Urine pH 6.0 (5.0-8.0) Ur Specific [place] 1.025 (1.005-1.025) Urine Protein NEG (NEG-TRACE) MG/DL Urine Glucose (UA) NEG (NEG) MG/DL Assessment and Plan (1) Ureterolithiasis: Status: Acute (2) UTI (urinary tract infection): Status: Acute Ureteroscopy We discussed the nature of the decision and reasonable alternatives for performing the above surgery. Interventions include chemical dissolution, ESWL, ureteroscopy with laser lithotripsy and stent placement, PCNL. Options such as medical therapy were discussed. The relative uncertainties and benefits related to each alternate procedure were adequately discussed. General surgical risks including, but not limited to, pain, bleeding, infection, myocardial infarction, pulmonary embolus, deep vein thrombosis and cerebrovascular accident which may result in further hospitalization were discussed. Full disclosure of the procedure as well as all major risks, benefits and complications were discussed including but not limited to damage to the urethra, bladder and kidney infection, damage to the ureter, stent migration or malposition, scarring to the renal pelvis, remnant stone fragments, subsequent stone passage with need for secondary procedures. The overall secondary procedure rate is approximately 10-15%. The success rate of the procedure was discussed. Success of the procedure in the short-term does not necessarily guarantee that long-term success will be maintained. Suitable follow up will need to be maintained. The patient showed understanding of discussion and wishes to proceed with - cystoscopy, retrograde, ureteroscopy, possible lithotripsy/stone basketing and stent on the right side Quality Stroke Does the patient have a stroke diagnosis?: No VTE Prior VTE?: No VTE Risk Level:: Surgical - low VTE Device Contraindication: Treatment Not Indicated VTE Drug Contraindication: Treatment Not Indicated Procedures Date of Service Date of Service: 11/26/20
--- NOTE | 2020-11-26 14:37 | HO.ANESPROP2 ---
FORM[facility]LY [facility], LATER [facility] Active Problems Active Problems: All Active Problems (Updated 11/25/20 @ 13:57 by ZOEY Olson) Ureterolithiasis (Acute) UTI (urinary tract infection) (Acute) Sepsis (Acute) Ovarian cyst (Acute) Kidney stones (Acute) Renal colic (Acute) Hernia (Acute) Past Medical History Medical History Hernia Renal colic Surgical History Surgical History H/O lithotripsy Social History Social History Alcohol intake: current Alcohol intake frequency: holidays/special occasions only Patient Tobacco Use Status: Never used Tobacco Use of substances other than those prescribed or required for medical reasons: Yes Substance Use Type: Marijuana Currently Displaying Signs/Symptoms of Drug Intoxication Withdrawal: No Advance Directives: No Advance Directives Information Provided: No Do you have thoughts of harming others: None Do you have a plan to hurt others: No Plan Patient : No service: No Current occupational status: employed Meds Allergies Allergy/AdvReac Type Severity Reaction Status Date / Time No Known Allergies Allergy Verified 11/25/20 14:05 [No Known Allergies*] Active Medications: Current Medications Generic Name Dose Route Start Last Admin Trade Name Freq PRN Reason Stop Dose Admin Acetaminophen 650 mg 11/25/20 17:45 11/26/20 12:31 Acetaminophen Supp 650 Mg Supp.Rect ND Not Given Q6H [facility] Sodium Chloride 1,000 mls @ 100 mls/hr 11/25/20 17:45 11/26/20 12:29 Ns IVCONT 100 mls/hr .Q10H [facility] Administration Levofloxacin 500 mg in 100 mls @ 100 mls/hr 11/25/20 18:00 11/25/20 18:49 Levaquin IV Infused Q24H [facility] Infusion Ketorolac Tromethamine 30 mg 11/25/20 17:45 11/25/20 22:34 Ketorolac Tromethamine 30 Mg/Ml Vial IVPUSH 11/30/20 17:44 30 mg Q6H PRN Administration Pain, Mild (Pain Scale 1-3) Morphine Sulfate 4 mg 11/26/20 00:00 11/26/20 12:25 Morphine Sulfate 4 Mg/Ml Cartridge IVPUSH 4 mg Q3H PRN Administration Pain, Severe (Pain Scale 7-10) Ondansetron HCl 4 mg 11/25/20 17:41 11/26/20 09:32 Ondansetron Hcl 4 Mg/2 Ml Vial IVPUSH 4 mg Q8H PRN Administration Nausea and Vomiting Sodium Chloride 3 ml 11/26/20 00:00 11/26/20 08:01 0.9 % Sodium Chloride Flush 3 Ml Syringe IVFLUSH Not Given QSHIFT [facility] Home Medications Medication Instructions Recorded Confirmed Last Taken Type lisdexamfetamine [Vyvanse] 40 mg PO DAILY 11/25/20 11/25/20 Unknown History mirtazapine 60 mg PO BEDTIME 11/25/20 11/25/20 11/24/20 20:00 History Exam Exam Date and Time: November 26, 2020 1437 Height,Weight and Vital Signs: Height 5 ft 2 in Weight 88.451 kg Last Vital Signs Temp 97.3 F 11/26/20 08:00 Pulse 76 11/26/20 11:36 Resp 15 11/26/20 11:36 BP 117/76 11/26/20 11:36 Pulse Ox 97 11/26/20 11:36 Pertinent Lab Results Pertinent Lab Results: Laboratory Tests 11/25/20 11/25/20 11/25/20 12:11 12:21 12:21 WBC 14.7 H RBC 4.71 Hgb 14.1 Hct 42.5 MCV 90.2 MCH 29.9 MCHC 33.2 RDW 12.6 Plt Count 343 MPV 9.1 L Immature Gran % (Auto) 1.1 H Neut % (Auto) 82.7 H Lymph % (Auto) 12.8 L [place] % (Auto) 3.3 Eos % (Auto) 0.0 Baso % (Auto) 0.1 Lymph # (Auto) 1.9 [place] # (Auto) 0.5 Eos # (Auto) 0.0 Baso # (Auto) 0.0 Abs Immat Gran (auto) 0.16 H Absolute Neuts (auto) 12.1 H Absolute Nucleated RBC 0.000 Nucleated RBC % (auto) 0.0 PT 10.7 L INR 0.9 Sodium Potassium Chloride Carbon Dioxide Anion Gap BUN Creatinine Estim Creat Clear Calc Estimated GFR Random Glucose Lactic Acid Calcium Magnesium Total Bilirubin AST ALT Alkaline Phosphatase Total Protein Albumin Beta HCG, Quant Urine Color YELLOW Urine Appearance HAZY Urine pH 6.0 Ur Specific [place] 1.025 Urine Protein NEG Urine Glucose (UA) NEG Urine Ketones 5 Urine Blood NEG Urine Nitrite NEG Ur Leukocyte Esterase TRACE H Urine RBC 0 Urine WBC 1-4 Ur Squamous Epith Cells 3+ Calcium Oxalate Crystal TRACE Urine Bacteria 2+ Urine Mucus 1+ COVID-19 ([facility]) COVID-19 Clin Com 11/25/20 11/25/20 11/25/20 12:21 12:21 12:51 WBC RBC Hgb Hct MCV MCH MCHC RDW Plt Count MPV Immature Gran % (Auto) Neut % (Auto) Lymph % (Auto) [place] % (Auto) Eos % (Auto) Baso % (Auto) Lymph # (Auto) [place] # (Auto) Eos # (Auto) Baso # (Auto) Abs Immat Gran (auto) Absolute Neuts (auto) Absolute Nucleated RBC Nucleated RBC % (auto) PT INR Sodium 138 Potassium 4.2 Chloride 107 Carbon Dioxide 23 Anion Gap 12 BUN 18 H Creatinine 0.81 Estim Creat Clear Calc 95.4 Estimated GFR > 60 Random Glucose 167 H D Lactic Acid 2.0 Calcium 9.6 Magnesium 2.0 Total Bilirubin 0.5 AST 15 ALT 12 Alkaline Phosphatase 90 Total Protein 6.9 Albumin 4.3 Beta HCG, Quant < 2 Urine Color Urine Appearance Urine pH Ur Specific Adel Urine Protein Urine Glucose (UA) Urine Ketones Urine Blood Urine Nitrite Ur Leukocyte Esterase Urine RBC Urine WBC Ur Squamous Epith Cells Calcium Oxalate Crystal Urine Bacteria Urine Mucus COVID-19 ([facility]) COVID-19 Clin Com 11/25/20 11/26/20 11/26/20 13:59 05:52 05:52 WBC 10.8 RBC 3.68 L D Hgb 11.2 L D Hct 33.8 L D MCV 91.8 MCH 30.4 MCHC 33.1 RDW 12.9 Plt Count 266 MPV 9.1 L Immature Gran % (Auto) 0.6 H Neut % (Auto) 52.7 Lymph % (Auto) 37.5 [place] % (Auto) 7.0 Eos % (Auto) 1.9 Baso % (Auto) 0.3 Lymph # (Auto) 4.0 [place] # (Auto) 0.8 Eos # (Auto) 0.2 Baso # (Auto) 0.0 Abs Immat Gran (auto) 0.06 H Absolute Neuts (auto) 5.7 Absolute Nucleated RBC 0.000 Nucleated RBC % (auto) 0.0 PT INR Sodium 140 Potassium 3.7 Chloride 112 H Carbon Dioxide 22 Anion Gap 10 L BUN 17 H Creatinine 0.71 Estim Creat Clear Calc 108.8 Estimated GFR > 60 Random Glucose 86 D Lactic Acid Calcium 8.0 L D Magnesium Total Bilirubin AST ALT Alkaline Phosphatase Total Protein Albumin Beta HCG, Quant Urine Color Urine Appearance Urine pH Ur Specific Adel Urine Protein Urine Glucose (UA) Urine Ketones Urine Blood Urine Nitrite Ur Leukocyte Esterase Urine RBC Urine WBC Ur Squamous Epith Cells Calcium Oxalate Crystal Urine Bacteria Urine Mucus COVID-19 ([facility]) Negative COVID-19 Clin Com See Note Airway Mallampati Class: II TM Dist: >3cm Neck ROM: Full Assessment and Plan Assessment Anesthesia Assessment: Anesthesia Plan Discussed and Chart Reviewed Final Anesthetic Review NPO: Yes ASA Class: II Final Preanesthetic Review: No Changes in Pt Med Stat, Meds/Allgs Chart Reviewed, Consent Obtained/Reviewed and Anes Risks/Benef Reviewed Patient Risk: Low Procedure Risk: Low Assessment/Block/Sedation in SS: Assess/Block/Sedation-SS Anesthetic Plan Anesthetic Plan: GA Disposition: Standard PACU
--- NOTE | 2020-11-26 14:49 | P.HPSUR_ITS ---
Pre-Procedural Eval Section A Date of Service: 11/26/20 The patient is an INPATIENT: Yes Changes since office visit: No Cold of Flu in the past 2 weeks, No New Medical Problems, No Changes in Medication and No Patient answered all questions The History & Physical has been completed within 30 days and I have reviewed it.: Yes Section B Chief Complaint: Distal ureteric stone Allergies: Allergies Allergy/AdvReac Type Severity Reaction Status Date / Time No Known Allergies Allergy Verified 11/25/20 14:05 [No Known Allergies*] Plan Diagnosis/Plan: Unchanged ( right-sided retrograde, ureteroscopy, laser l ithotripsy stent) I have reviewed the history and physical and performed a pertinent physical examination on my patient. No changes have occurred unless specified.
--- NOTE | 2020-11-26 15:47 | W.PM.OPN ---
Operative Note Operative Note Date of Service: 11/26/20 Narrative: PreOperative Diagnosis: distal right ureteric stone with hydroureteronephrosis Post Operative Diagnosis: impacted distal right ureteric stone at ureteric orifice with hydroureteronephrosis Procedure: - cystoscopy - right incision and unroofing of ureteric orifice - right retrograde with stent placement Surgeon: Dr Rio Styles Anesthesia: General Indications for procedure: this is a 40-year-old female. Recurrent stone former. Presented with right flank pain and inability to tolerate oral medications. Imaging showed 4 mm stone by distal UVJ. Mild hydroureteronephrosis. Recommended ureteroscopy with laser lithotripsy and stent placement. Procedure: After informed consent was verified patient was brought to the operating placed in supine position. Anesthesia was administered per protocol. Patient was placed in modified dorsal lithotomy position and prepped and draped in a sterile fashion. Safety pause time-out and side of surgery confirmed. Antibiotics confirmed. Twenty-two Amharic cystoscope placed. At placement was clear that the stone was imbedded in the distal portion of the ureter. This was swollen and much larger than the normal left side. Initially we tried to enter ureteric orifice but the entrance was effaced due to the swelling from the stone. Using the 365 micron fiber we attempted to incise the ureter with the laser. We were not able to remove the stone fully. To a resectoscope in using a Laboy hot knife we incised on top of ureter and released this stone. in order to create a consistent ureteric opening we used the resectoscope to resect the distal 0.5 cm of ureter that had been swollen with the impacted stone. We could then see the ureteric channel. Using a Sensor wire we placed this up to level of the renal pelvis. Retrograde confirmed our position in the renal pelvis. A sensor guidewire was placed. A 6 Amharic by 24 cm double-J stent was placed and will remain for 6 weeks. She tolerated the procedure well was extubated in the operating room transferred in stable condition to the recovery area. Pathology: Drains: 6 Amharic by 24 cm stent
[2020-11-26] MEDS: Acetaminophen 325 MG TABLET 650 MG PO (16:21)
[2020-11-26] MEDS: 0.9 % Sodium Chloride Flush 3 ML SYRINGE IVFLUSH (16:22)
[2020-11-26] MEDS: levoFLOXacin/D5W 500 MG/100 ML PIGGYBACK 100 MG IV (18:20)
[2020-11-26] MEDS: Ketorolac Tromethamine 30 MG/ML VIAL IVPUSH (20:04)
[2020-11-27] VITALS (8 sets, daily range): BP systolic 89–118; BP diastolic 54–74; PULSE 66–82; RESP 14–21; TEMP 36–36.6; O2SAT 95–99
[2020-11-27] MEDS: oxyCODONE HCl Immed Release 5 MG TABLET PO ×4 (00:01→19:37)
[2020-11-27] MEDS: Ketorolac Tromethamine 30 MG/ML VIAL IVPUSH ×4 (02:19→23:18)
[2020-11-27] MEDS: Morphine Sulfate 4 MG/ML CARTRIDGE IVPUSH ×3 (02:20→09:31)
[2020-11-27] MEDS: traMADoL HCL 50 MG TABLET PO ×4 (04:35→23:30)
[2020-11-27] MEDS: ondansetron HCL 4 MG/2 ML VIAL IVPUSH ×2 (04:45→14:26)
[2020-11-27] MEDS: 0.9 % Sodium Chloride 1,000 ML 100 ML IVCONT ×2 (07:14→23:20)
--- NOTE | 2020-11-27 08:13 | PM.UROPN ---
Subjective Subjective Date of Service: 11/27/20 Patient reports: still having pain and tolerating liquids well Interval history: Day 1 after distal stone removal with incision of ureter hematuria and retention overnight catheter in place still bloody stay today and bladder spasm medications Physical Exam Vital Signs: Vital Signs: Last Vital Signs Temp 97.1 F 11/27/20 07:16 Pulse 71 11/27/20 07:16 Resp 21 H 11/27/20 07:16 BP 114/71 11/27/20 07:16 Pulse Ox 99 11/27/20 07:16 Body Mass Index 35.6 Const: General: cooperative, healthy appearing, comfortable and no acute distress Nutritional Appearance: average body habitus Orientation/consciousness: oriented to person, oriented to place and oriented to time Eyes: General: appearance normal, both eyes and all related structures Chest: Chest palpation & inspection: normal inspection of the chest Resp: Effort & Inspection: normal respiratory effort Cardio: Rate: regular rate GI: Inspection: Yes normal to inspection Skin: Hair: normal Neuro: General: oriented to person, oriented to place and oriented to time Extrem: General: Yes normal to inspection Urology Results Labs CBC & Chem 7: 11/26/20 05:52 11/26/20 05:52 Progress Note: A&P Assessment and plan (1) UTI (urinary tract infection): Status: Acute (2) Ureterolithiasis: Status: Acute Assessment and Plan: add antispasmodics add stool softeners continue with metzger catheter until urine clears Fall Risk Details Current Medications: Current Medications Generic Name Dose Route Start Last Admin Trade Name Freq PRN Reason Stop Dose Admin Acetaminophen 650 mg 11/25/20 17:45 11/27/20 07:01 Acetaminophen Supp 650 Mg Supp.Rect [place] Not Given Q6H [facility] Acetaminophen 650 mg 11/26/20 14:40 Acetaminophen 325 Mg Tablet PO ONCE PRN Pain, Mild (Pain Scale 1-3) Fentanyl 50 mcg 11/26/20 14:40 Fentanyl Citrate/Pf 100 Mcg/2 Ml Vial IVPUSH Q5M PRN Pain, Severe (Pain Scale 7-10) Sodium Chloride 1,000 mls @ 100 mls/hr 11/25/20 17:45 11/27/20 07:14 Ns IVCONT 100 mls/hr .Q10H [facility] Administration Levofloxacin 500 mg in 100 mls @ 100 mls/hr 11/25/20 18:00 11/26/20 19:36 Levaquin IV Infused Q24H [facility] Infusion Lactated Ringer's 500 mls @ 20 mls/hr 11/26/20 14:45 11/26/20 17:12 Lr IVCONT Not Given .Q24H [facility] Ketorolac Tromethamine 30 mg 11/25/20 17:45 11/27/20 08:01 Ketorolac Tromethamine 30 Mg/Ml Vial IVPUSH 11/30/20 17:44 30 mg Q6H PRN Administration Pain, Mild (Pain Scale 1-3) Morphine Sulfate 4 mg 11/26/20 00:00 11/27/20 06:08 Morphine Sulfate 4 Mg/Ml Cartridge IVPUSH 4 mg Q3H PRN Administration Pain, Severe (Pain Scale 7-10) Ondansetron HCl 4 mg 11/25/20 17:41 11/27/20 04:45 Ondansetron Hcl 4 Mg/2 Ml Vial IVPUSH 4 mg Q8H PRN Administration Nausea and Vomiting Ondansetron HCl 4 mg 11/26/20 14:40 Ondansetron Hcl 4 Mg/2 Ml Vial IVPUSH ONCE PRN Nausea and Vomiting Oxycodone HCl 5 mg 11/26/20 14:40 Oxycodone Hcl Immed Release 5 Mg Tablet PO ONCE PRN Pain, Severe (Pain Scale 7-10) Oxycodone HCl 5 mg 11/26/20 15:45 11/27/20 07:14 Oxycodone Hcl Immed Release 5 Mg Tablet PO 5 mg Q4H PRN Administration Breakthrough Pain Sodium Chloride 3 ml 11/26/20 00:00 11/27/20 07:14 0.9 % Sodium Chloride Flush 3 Ml Syringe IVFLUSH Not Given QSHIFT [facility] Tramadol HCl 50 mg 11/26/20 15:45 11/27/20 04:35 Tramadol Hcl 50 Mg Tablet PO 50 mg Q6H PRN Administration Pain, Moderate (Pain Scale 4-6 Time Spent With Patient Time: Total time spent is greater than 50% in coordination of care (as documented) at patient's floor/unit and/or counseling patient: Time with patient: 15 - 24 minutes Progress Note: Quality Stroke Does the patient have a stroke diagnosis?: No
[2020-11-27 08:15] LABS: Hematocrit 33.4 % (37-47); Hemoglobin 11.2 g/dl (12.0-16.0); Mean Corpuscular HGB Conc 33.5 g/dl (31.0-35.0); Mean Corpuscular Hemoglobin 30.1 pg (27.0-33.0); Mean Corpuscular Volume 89.8 fL (80-98); Mean Platelet Volume 9.2 fL (9.4-12.3); Platelet Count 279 X10*3/uL (160-400); Red Blood Count 3.72 X10*6/uL (4.20-5.50); Red Cell Distribution Width 12.5 % (11.0-16.0); White Blood Count 17.9 X10*3/uL (4.8-10.8)
[2020-11-27] MEDS: levoFLOXacin 500 MG TABLET PO (08:35)
[2020-11-27] MEDS: Docusate Sodium 100 MG CAPSULE PO (08:35)
[2020-11-28] MEDS: oxyCODONE HCl Immed Release 5 MG TABLET PO ×2 (01:52→15:44)
[2020-11-28 02:23] VITALS: BP 121/78; PULSE 70
[2020-11-28] MEDS: Morphine Sulfate 4 MG/ML CARTRIDGE IVPUSH ×3 (02:26→23:23)
[2020-11-28 03:37] VITALS: BP 113/59; PULSE 82; RESP 16; TEMP 36.2; O2SAT 95
[2020-11-28] MEDS: traMADoL HCL 50 MG TABLET PO ×3 (05:23→20:11)
[2020-11-28] MEDS: Ketorolac Tromethamine 30 MG/ML VIAL IVPUSH ×3 (05:23→20:12)
--- NOTE | 2020-11-28 06:49 | HO.POSTANES ---
Post Anesthesia Evaluation Post Anesthesia Evaluation Vital Signs: Vital Signs Temp Pulse Resp BP Pulse Ox 11/28/20 03:37 97.1 F 82 16 113/59 L 95 11/28/20 02:23 70 121/78 11/27/20 23:26 97.4 F 66 16 104/54 L 95 11/27/20 19:46 96.8 F 79 15 104/55 L 96 Anesthesia: General Mental Status: Awake Pain Control: Satisfactory Nausea/Vomiting: None Hydration: Adequate Anesthesia-Related Issues: No Anes. Related Issues
[2020-11-28 07:49] VITALS: BP 110/70; PULSE 77; RESP 16; TEMP 36.6; O2SAT 98
[2020-11-28] MEDS: levoFLOXacin 500 MG TABLET PO (07:50)
[2020-11-28] MEDS: Docusate Sodium 100 MG CAPSULE PO (07:54)
[2020-11-28 11:43] VITALS: BP 100/67; PULSE 78; RESP 16; TEMP 36.4; O2SAT 96
[2020-11-28 15:28] VITALS: BP 106/66; PULSE 70; RESP 16; TEMP 36.2; O2SAT 97
--- NOTE | 2020-11-28 16:27 | PM.UROPN ---
Subjective Subjective Date of Service: 11/28/20 Patient reports: pain is less Interval history: spasm has decreased still with hematuria only occasional clots stay overnight will irrigate catheter tomorrow morning Physical Exam Vital Signs: Vital Signs: Last Vital Signs Temp 97.1 F 11/28/20 15:28 Pulse 70 11/28/20 15:28 Resp 16 11/28/20 15:28 BP 106/66 11/28/20 15:28 Pulse Ox 97 11/28/20 15:28 Body Mass Index 35.6 Const: General: cooperative, healthy appearing, comfortable and no acute distress Orientation/consciousness: patient oriented x3 HENMT: Face and sinus: Yes normal facial exam Mouth: moist mucous membranes Neck: Neck: Yes normal visual inspection, Yes full ROM and Yes trachea midline Chest: Chest palpation & inspection: normal inspection of the chest Resp: Effort & Inspection: normal respiratory effort, able to speak in complete sentences and no respiratory distress GI: Inspection: Yes normal to inspection Back/Spine/Pelvis: Cervical Spine: normal cervical lordosis Thoracic/Lumbar Spine: thoracic and lumbar spine normal to inspection Skin: General skin exam: no rashes or lesions noted Neuro: General: patient oriented x3, gait normal, tone normal and moves all extremities Extrem: General: Yes normal to inspection and Yes capillary refill normal Urology Results Labs CBC & Chem 7: 11/27/20 07:56 11/26/20 05:52 Progress Note: A&P Assessment and plan (1) Ureterolithiasis: Status: Acute (2) Gross hematuria: Status: Acute (3) Urinary retention with incomplete bladder emptying: Status: Acute Assessment and Plan: continue metzger catheter irrigate in am if necessary Fall Risk Details Current Medications: Current Medications Generic Name Dose Route Start Last Admin Trade Name Freq PRN Reason Stop Dose Admin Acetaminophen 650 mg 11/25/20 17:45 11/28/20 12:17 Acetaminophen Supp 650 Mg Supp.Rect IL Not Given Q6H [facility] Acetaminophen 650 mg 11/26/20 14:40 Acetaminophen 325 Mg Tablet PO ONCE PRN Pain, Mild (Pain Scale 1-3) Belladonna Alkaloids/Opium 1 supp 11/27/20 08:16 11/28/20 07:50 Opium/Belladonna .2 Supp Supp.Rect IL 1 supp BID PRN Administration bladder spasm Docusate Sodium 100 mg 11/27/20 08:17 06/30/21 07:54 Docusate Sodium 100 Mg Capsule PO 100 mg BID PRN Administration Constipation Fentanyl 50 mcg 11/26/20 14:40 Fentanyl Citrate/Pf 100 Mcg/2 Ml Vial IVPUSH Q5M PRN Pain, Severe (Pain Scale 7-10) Sodium Chloride 1,000 mls @ 100 mls/hr 11/25/20 17:45 11/28/20 14:30 Ns IVCONT Not Given .Q10H INOCENCIO Lactated Ringer's 500 mls @ 20 mls/hr 11/26/20 14:45 11/28/20 13:52 Lr IVCONT Not Given .Q24H INOCENCIO Ketorolac Tromethamine 30 mg 11/25/20 17:45 11/28/20 11:35 Ketorolac Tromethamine 30 Mg/Ml Vial IVPUSH 11/30/20 17:44 30 mg Q6H PRN Administration Pain, Mild (Pain Scale 1-3) Levofloxacin 500 mg 11/27/20 08:15 11/28/20 07:50 Levofloxacin 500 Mg Tablet PO 11/29/20 08:16 500 mg Q24H INOCENCIO Administration Morphine Sulfate 4 mg 11/26/20 00:00 11/28/20 12:36 Morphine Sulfate 4 Mg/Ml Cartridge IVPUSH 4 mg Q3H PRN Administration Pain, Severe (Pain Scale 7-10) Ondansetron HCl 4 mg 11/25/20 17:41 11/27/20 14:26 Ondansetron Hcl 4 Mg/2 Ml Vial IVPUSH 4 mg Q8H PRN Administration Nausea and Vomiting Ondansetron HCl 4 mg 11/26/20 14:40 Ondansetron Hcl 4 Mg/2 Ml Vial IVPUSH ONCE PRN Nausea and Vomiting Oxybutynin Chloride 5 mg 11/27/20 09:00 11/28/20 07:49 Oxybutynin Chloride Er 5 Mg Tab.Er.24 PO 5 mg DAILY INOCENCIO Administration Oxycodone HCl 5 mg 11/26/20 15:45 11/28/20 01:52 Oxycodone Hcl Immed Release 5 Mg Tablet PO 5 mg Q4H PRN Administration Breakthrough Pain Sodium Chloride 3 ml 11/26/20 00:00 11/28/20 14:30 0.9 % Sodium Chloride Flush 3 Ml Syringe IVFLUSH Not Given QSHIFT INOCENCIO Tramadol HCl 50 mg 11/26/20 15:45 11/28/20 11:36 Tramadol Hcl 50 Mg Tablet PO 50 mg Q6H PRN Administration Pain, Moderate (Pain Scale 4-6 Time Spent With Patient Time: Total time spent is greater than 50% in coordination of care (as documented) at patient's floor/unit and/or counseling patient: Time with patient: 15 - 24 minutes Progress Note: Quality Stroke Does the patient have a stroke diagnosis?: No
[2020-11-28] MEDS: ondansetron HCL 4 MG/2 ML VIAL IVPUSH (17:06)
[2020-11-28 19:39] VITALS: BP 109/66; PULSE 86; RESP 14; TEMP 37.3; O2SAT 97
[2020-11-28] MEDS: 0.9 % Sodium Chloride Flush 3 ML SYRINGE IVFLUSH (23:43)
[2020-11-29] VITALS (8 sets, daily range): BP systolic 108–129; BP diastolic 61–94; PULSE 66–103; RESP 16–20; TEMP 36.2–36.9; O2SAT 95–98
[2020-11-29] MEDS: Ketorolac Tromethamine 30 MG/ML VIAL IVPUSH ×3 (02:09→18:06)
[2020-11-29] MEDS: oxyCODONE HCl Immed Release 5 MG TABLET PO ×2 (02:10→12:26)
--- NOTE | 2020-11-29 04:42 | PC.NURSE ---
Addendum entered by Carla Dean RN 11/29/20 07:00: * First bladder scan 586ml Original Note: after 1 am pt very uncomfortable and was medicated with all available pain meds not able to get comfortable. pt states she feels pressure and urine not flowing out md notified ; there was no prn order to irrigate the f/c .first [id number] ml and irrigated f/cath with 60 ml as ordered by dr Styles pt feels much better urine is flowing dark red color.
[2020-11-29] MEDS: levoFLOXacin 500 MG TABLET PO (08:09)
[2020-11-29] MEDS: 0.9 % Sodium Chloride Flush 3 ML SYRINGE IVFLUSH (08:18)
[2020-11-29] MEDS: traMADoL HCL 50 MG TABLET PO ×2 (08:18→18:06)
[2020-11-29] MEDS: Docusate Sodium 100 MG CAPSULE PO ×2 (08:20→21:22)
[2020-11-29] MEDS: 0.9 % Sodium Chloride 1,000 ML 100 ML IVCONT ×2 (10:02→19:20)
[2020-11-29] MEDS: Morphine Sulfate 4 MG/ML CARTRIDGE IVPUSH ×3 (10:58→21:26)
[2020-11-29] MEDS: ondansetron HCL 4 MG/2 ML VIAL IVPUSH (14:47)
[2020-11-29] MEDS: Acetaminophen 325 MG TABLET 650 MG PO (19:20)
[2020-11-30] VITALS (8 sets, daily range): BP systolic 114–142; BP diastolic 73–84; PULSE 70–82; RESP 18–20; TEMP 36.1–36.4; O2SAT 96–99
[2020-11-30] MEDS: Ketorolac Tromethamine 30 MG/ML VIAL IVPUSH ×3 (02:57→16:04)
[2020-11-30] MEDS: traMADoL HCL 50 MG TABLET PO ×3 (02:58→16:04)
[2020-11-30] MEDS: 0.9 % Sodium Chloride 1,000 ML 100 ML IVCONT ×2 (05:05→20:06)
[2020-11-30] MEDS: Docusate Sodium 100 MG CAPSULE PO (08:12)
[2020-11-30] MEDS: oxyCODONE HCl Immed Release 5 MG TABLET PO (08:12)
[2020-11-30] MEDS: ondansetron HCL 4 MG/2 ML VIAL IVPUSH ×2 (10:32→18:10)
--- NOTE | 2020-11-30 11:21 | MHC.CM.PN ---
EMR REVIEWED, PT'S IVF STOPPED, [facility] CATH REMAINS IN PLACE AND UROLOGY WILL KEEP PT OVERNIGHT TO MONITOR. ANTICIPATED D/C Thursday12/01/2020 HOME SELF-CARE W/FOLLOW-UP W/ DR GREEN, FAMILY FOR TRANSPORT.
--- NOTE | 2020-11-30 12:18 | P.PNUR_ITS ---
Subjective Subjective Date of Service: 11/30/20 Interval history: urine is cleared stop IVs if urine remains clear can remove catheter possible discharge this afternoon Physical Exam Vital Signs: Vital Signs: Last Vital Signs Temp 97.1 F 11/30/20 11:59 Pulse 78 11/30/20 11:59 Resp 18 11/30/20 11:59 BP 126/76 11/30/20 11:59 Pulse Ox 97 11/30/20 11:59 Body Mass Index 35.6 Const: General: cooperative, healthy appearing, comfortable and no acute distress Orientation/consciousness: patient oriented x3 HENMT: Face and sinus: Yes normal facial exam Mouth: moist mucous membranes Neck: Neck: Yes normal visual inspection, Yes full ROM and Yes trachea midline Chest: Chest palpation & inspection: normal inspection of the chest Resp: Effort & Inspection: normal respiratory effort, able to speak in complet e sentences and no respiratory distress GI: Inspection: Yes normal to inspection Back/Spine/Pelvis: Cervical Spine: normal cervical lordosis Thoracic/Lumbar Spine: thoracic and lumbar spine normal to inspection Skin: General skin exam: no rashes or lesions noted Neuro: General: patient oriented x3, gait normal, tone normal and moves all extremities Extrem: General: Yes normal to inspection and Yes capillary refill normal Urology Results Labs CBC & Chem 7: 11/27/20 07:56 11/26/20 05:52 Progress Note: A&P Assessment and plan (1) Gross hematuria: Status: Acute (2) Ureterolithiasis: Status: Acute Assessment and Plan: resolving hematuria will be able to discharge if hematuria resolved Fall Risk Details Current Medications: Current Medications Generic Name Dose Route Start Last Admin Trade Name Freq PRN Reason Stop Dose Admin Acetaminophen 650 mg 11/25/20 17:45 11/30/20 11:16 Acetaminophen Supp 650 Mg Supp.Rect [place] Not Given Q6H INOCENCIO Belladonna Alkaloids/Opium 1 supp 11/27/20 08:16 11/30/20 02:58 Opium/Belladonna 30/16.2 Supp Supp.Rect LA 1 supp BID PRN Administration bladder spasm Docusate Sodium 100 mg 11/27/20 08:17 11/30/20 08:12 Docusate Sodium 100 Mg Capsule PO 100 mg BID PRN Administration Constipation Fentanyl 50 mcg 11/26/20 14:40 Fentanyl Citrate/Pf 100 Mcg/2 Ml Vial IVPUSH Q5M PRN Pain, Severe (Pain Scale 7-10) Lactated Ringer's 500 mls @ 20 mls/hr 11/26/20 14:45 11/29/20 13:32 Lr IVCONT Not Given .Q24H INOCENCIO Sodium Chloride 1,000 mls @ 100 mls/hr 11/29/20 10:00 11/30/20 05:05 Ns IVCONT 100 mls/hr .Q10H INOCENCIO Administration Ketorolac Tromethamine 30 mg 11/25/20 17:45 11/30/20 10:01 Ketorolac Tromethamine 30 Mg/Ml Vial IVPUSH 11/30/20 17:44 30 mg Q6H PRN Administration Pain, Mild (Pain Scale 1-3) Morphine Sulfate 4 mg 11/26/20 00:00 11/29/20 21:26 Morphine Sulfate 4 Mg/Ml Cartridge IVPUSH 4 mg Q3H PRN Administration Pain, Severe (Pain Scale 7-10) Ondansetron HCl 4 mg 11/25/20 17:41 11/30/20 10:32 Ondansetron Hcl 4 Mg/2 Ml Vial IVPUSH 4 mg Q8H PRN Administration Nausea and Vomiting Ondansetron HCl 4 mg 11/26/20 14:40 Ondansetron Hcl 4 Mg/2 Ml Vial IVPUSH ONCE PRN Nausea and Vomiting Oxybutynin Chloride 5 mg 11/27/20 09:00 11/30/20 08:12 Oxybutynin Chloride Er 5 Mg Tab.Er.24 PO 5 mg DAILY INOCENCIO Administration Oxycodone HCl 5 mg 11/26/20 14:40 Oxycodone Hcl Immed Release 5 Mg Tablet PO ONCE PRN Pain, Severe (Pain Scale 7-10) Oxycodone HCl 5 mg 11/26/20 15:45 11/30/20 08:12 Oxycodone Hcl Immed Release 5 Mg Tablet PO 5 mg Q4H PRN Administration Breakthrough Pain Sodium Chloride 3 ml 11/26/20 00:00 11/30/20 08:12 0.9 % Sodium Chloride Flush 3 Ml Syringe IVFLUSH Not Given QSHIFT INOCENCIO Tramadol HCl 50 mg 11/26/20 15:45 11/30/20 10:01 Tramadol Hcl 50 Mg Tablet PO 50 mg Q6H PRN Administration Pain, Moderate (Pain Scale 4-6 Time Spent With Patient Time: Total time spent is greater than 50% in coordination of care (as documented) at patient's floor/unit and/or counseling patient: Time with patient: less than 15 minutes Progress Note: Quality Stroke Does the patient have a stroke diagnosis?: No
[2020-11-30] MEDS: Morphine Sulfate 4 MG/ML CARTRIDGE IVPUSH ×3 (12:25→21:26)
[2020-11-30] MEDS: 0.9 % Sodium Chloride Flush 3 ML SYRINGE IVFLUSH (14:44)
[2020-11-30] MEDS: Magnesium Citrate 300 ML SOLUTION PO (18:10)
[2020-11-30] MEDS: Phenazopyridine HCL 100 MG TABLET PO (19:56)
[2020-12-01] MEDS: ondansetron HCL 4 MG/2 ML VIAL IVPUSH ×4 (01:51→14:58)
[2020-12-01] MEDS: oxyCODONE HCl Immed Release 5 MG TABLET PO ×3 (01:51→14:58)
[2020-12-01 03:42] VITALS: BP 124/79; PULSE 80; RESP 16; TEMP 36.7; O2SAT 98
[2020-12-01] MEDS: Acetaminophen Supp 650 MG SUPP.RECT PR (04:57)
[2020-12-01] MEDS: 0.9 % Sodium Chloride 1,000 ML 100 ML IVCONT (05:00)
--- NOTE | 2020-12-01 05:58 | MHC.PIE ---
p; pt c/o pain and n/v. note; prn morphine 4mg iv and prn toradol iv d/c . pt unable to tolerate po med a this time. i; dr landrum notified; new order toradol 30 mg iv now - via telephone order e; will cont to monitor
[2020-12-01] MEDS: Ketorolac Tromethamine 30 MG/ML VIAL IVPUSH (06:12)
[2020-12-01 07:33] VITALS: BP 133/63; PULSE 76; RESP 18; TEMP 36.2; O2SAT 100
[2020-12-01] MEDS: Docusate Sodium 100 MG CAPSULE PO (07:52)
[2020-12-01] MEDS: Phenazopyridine HCL 100 MG TABLET PO ×2 (07:52→15:09)
[2020-12-01] MEDS: bisacodyL 10 MG SUPP.RECT PR (09:18)
[2020-12-01] MEDS: traMADoL HCL 50 MG TABLET PO (09:25)
[2020-12-01 11:39] VITALS: BP 124/74; PULSE 67; RESP 16; TEMP 36.1; O2SAT 98
--- NOTE | 2020-12-01 12:51 | PM.UROPN ---
Subjective Subjective Date of Service: 12/01/20 Patient reports: tolerating a regular diet, flatus, bowel movement ( with suppository) and afebrile Interval history: hematuria resolved yesterday Catheter removed this morning She tells me she has emptied her bladder twice Main issue now is lack all of bowel movement. Apparently this happens to her after general anesthesia. She has also been on opioids for bladder spasm. Suppository has been successful and will be included in discharge medications. IV fluids will be stopped. Hospital course was prolonged secondary to significant hematuria and bladder spasm. This appears to be resolved Physical Exam Vital Signs: Vital Signs: Last Vital Signs Temp 97.0 F 12/01/20 11:39 Pulse 67 12/01/20 11:39 Resp 16 12/01/20 11:39 BP 124/74 12/01/20 11:39 Pulse Ox 98 12/01/20 11:39 Body Mass Index 35.6 Const: General: cooperative, healthy appearing, comfortable and no acute distress Orientation/consciousness: patient oriented x3 HENMT: Face and sinus: Yes normal facial exam Mouth: moist mucous membranes Neck: Neck: Yes normal visual inspection, Yes full ROM and Yes trachea midline Chest: Chest palpation & inspection: normal inspection of the chest Resp: Effort & Inspection: normal respiratory effort, able to speak in complete sentences and no respiratory distress GI: Inspection: Yes normal to inspection Back/Spine/Pelvis: Cervical Spine: normal cervical lordosis Thoracic/Lumbar Spine: thoracic and lumbar spine normal to inspection Skin: General skin exam: no rashes or lesions noted Neuro: General: patient oriented x3, gait normal, tone normal and moves all extremities Extrem: General: Yes normal to inspection and Yes capillary refill normal Urology Results Labs CBC & Chem 7: 11/27/20 07:56 11/26/20 05:52 Progress Note: A&P Assessment and plan (1) Gross hematuria: Status: Acute (2) UTI (urinary tract infection): Status: Acute (3) Ureterolithiasis: Status: Acute Assessment and Plan: discharge this afternoon follow-up with discussion in 4 weeks regarding stent Fall Risk Details Current Medications: Current Medications Generic Name Dose Route Start Last Admin Trade Name Freq PRN Reason Stop Dose Admin Acetaminophen 650 mg 11/25/20 17:45 12/01/20 12:13 Acetaminophen Supp 650 Mg Supp.Rect [place] Not Given Q6H INOCENCIO Belladonna Alkaloids/Opium 1 supp 11/27/20 08:16 12/01/20 04:57 Opium/Belladonna 16.2 Supp Supp.Rect [place] 1 supp BID PRN Administration bladder spasm Docusate Sodium 100 mg 11/27/20 08:17 12/01/20 07:52 Docusate Sodium 100 Mg Capsule PO 100 mg BID PRN Administration Constipation Fentanyl 50 mcg 11/26/20 14:40 Fentanyl Citrate/Pf 100 Mcg/2 Ml Vial IVPUSH Q5M PRN Pain, Severe (Pain Scale 7-10) Sodium Chloride 1,000 mls @ 100 mls/hr 11/29/20 10:00 12/01/20 05:00 Ns IVCONT 100 mls/hr .Q10H INOCENCIO Administration Ondansetron HCl 4 mg 11/25/20 17:41 12/01/20 12:13 Ondansetron Hcl 4 Mg/2 Ml Vial IVPUSH 4 mg Q8H PRN Administration Nausea and Vomiting Ondansetron HCl 4 mg 11/26/20 14:40 12/01/20 06:14 Ondansetron Hcl 4 Mg/2 Ml Vial IVPUSH 4 mg ONCE PRN Administration Nausea and Vomiting Oxybutynin Chloride 5 mg 11/27/20 09:00 12/01/20 07:53 Oxybutynin Chloride Er 5 Mg Tab.Er.24 PO 5 mg DAILY INOCENCIO Administration Oxycodone HCl 5 mg 11/26/20 14:40 Oxycodone Hcl Immed Release 5 Mg Tablet PO ONCE PRN Pain, Severe (Pain Scale 7-10) Oxycodone HCl 5 mg 11/26/20 15:45 12/01/20 09:25 Oxycodone Hcl Immed Release 5 Mg Tablet PO 5 mg Q4H PRN Administration Breakthrough Pain Phenazopyridine HCl 100 mg 11/30/20 17:11 12/01/20 07:52 Phenazopyridine Hcl 100 Mg Tablet PO 100 mg BIDWM PRN Administration spasm Sodium Chloride 3 ml 11/26/20 00:00 12/01/20 07:54 0.9 % Sodium Chloride Flush 3 Ml Syringe IVFLUSH Not Given QSHIFT INOCENCIO Tramadol HCl 50 mg 11/26/20 15:45 12/01/20 09:25 Tramadol Hcl 50 Mg Tablet PO 50 mg Q6H PRN Administration Pain, Moderate (Pain Scale 4-6 Time Spent With Patient Time: Total time spent is greater than 50% in coordination of care (as documented) at patient's floor/unit and/or counseling patient: Time with patient: 15 - 24 minutes Progress Note: Quality Stroke Does the patient have a stroke diagnosis?: No
--- NOTE | 2020-12-01 13:01 | PM.DS ---
DS: Providers Provider Date of Service: 12/01/20 Date of admission: 11/25/20 17:36 Primary care physician: Mabel De Guzman MD DS: Diagnosis Discharge Diagnosis (1) Gross hematuria: Status: Acute (2) UTI (urinary tract infection): Status: Acute (3) Ureterolithiasis: Status: Acute DS: Medications Discharge Medications Home Medications: Home Medications Medication Instructions Recorded Confirmed Vyvanse 40 mg PO DAILY 11/25/20 11/25/20 mirtazapine 60 mg PO BEDTIME 11/25/20 11/25/20 Previous Rx's Medication Instructions Recorded ondansetron 4 mg PO Q8H PRN #20 tab 11/22/20 tamsulosin 0.4 mg PO DAILY 7 Days #7 cap 11/22/20 oxybutynin chloride 5 mg PO BID PRN #14 tab 12/01/20 phenazopyridine [Pyridium] 100 mg PO TID PRN 4 Days #12 tab 12/01/20 tamsulosin 0.4 mg PO BEDTIME 14 Days #14 cap 12/01/20 tramadol 50 mg PO Q6H PRN #14 tab 12/01/20 DS: Summary Time Spent with Patient Time attestation: Total time spent providing and/or coordinating discharge services: admission to hospital with distal right ureteric stone unable to pass. At surgery was found to have inflamed distal right ureteric orifice and required incision on ureter an order for stone to be released. Unable to navigate into ureteric orifice secondary to edema. A stent was placed. Postprocedure her hospital course was prolonged secondary to persistent hematuria which required increased IV fluids and slow return of bowel function. These have both resolved and she now has bowel function and is able to urinate without blood. Discharge coordination time: Less than 30 minutes Quality: Stroke Does the patient have a stroke diagnosis?: No Physical Exam Vital Signs: Vital Signs: Last Vital Signs Temp 97.0 F 12/01/20 11:39 Pulse 67 12/01/20 11:39 Resp 16 12/01/20 11:39 BP 124/74 12/01/20 11:39 Pulse Ox 98 12/01/20 11:39 Body Mass Index 35.6 Discharge Plan Discharge Patient Disposition: Home, Self-Care Discharge Diagnosis: ureterolithiasis Referrals: Mabel De Guzman MD [Primary Care Provider] - None Rio Styles MD [Physician] - 1 Month Discharge Medications: New phenazopyridine [Pyridium] 100 mg tablet 100 mg PO TID PRN (Reason: spasm) 4 Days Qty: 12 RF: 0 tramadol 50 mg tablet 50 mg PO Q6H PRN (Reason: pain (scale score 4-6)) Qty: 14 RF: 0 tamsulosin 0.4 mg capsule 0.4 mg PO BEDTIME 14 Days Qty: 14 RF: 0 oxybutynin chloride 5 mg tablet 5 mg PO BID PRN (Reason: bladder spasms) Qty: 14 RF: 0 Continued tamsulosin 0.4 mg capsule 0.4 mg PO DAILY 7 Days Qty: 7 RF: 0 ondansetron 4 mg tablet,disintegrating 4 mg PO Q8H PRN (Reason: nausea and vomiting) Qty: 20 RF: 0 mirtazapine 30 mg Tablet 60 mg PO BEDTIME RF: 0 Vyvanse 40 mg Capsule 40 mg PO DAILY RF: 0 Discontinued prednisone 20 mg tablet 40 mg PO DAILY 5 Days Qty: 10 RF: 0 oxycodone 5 mg tablet 5 mg PO Q6H PRN (Reason: pain) Qty: 20 RF: 0 Discharge Orders: Discharge Order (Routine); Ordered 12/01/20 Ordered By: Rio Styles Diet: advance to usual diet Activity on Discharge: As tolerated Stand Alone Forms: Patient Portal Discharge page Care Plan Goals: stent removal Health Concerns: stent removal Plan of Treatment: stent removal Assessment: stent removal
--- NOTE | 2020-12-01 13:10 | MHC.CM.PN ---
Female 40 dx renal stone discharged to home today. No home services ordered. Patient's providing transportation.
== END 2020-12-01 15:20 | disposition home or self-care (01) | DRG 443 ==
LOC: HO.ED 13:57 → HO.EDOVER 17:51 → HO.IMC 11-26 00:38 → HO.S3 11-26 06:01
PROVIDERS: Physician Assistant Medical; Admitting Provider Urology; Emergency Provider Emergency Medicine; PCP Family Medicine; Visit Provider Urology
DX: N13.6 Pyonephrosis (principal); R31.0 Gross hematuria; Z20.822 Contact with and (suspected) exposure to COVID-19; Z79.891 Long term (current) use of opiate analgesic; Z79.899 Other long term (current) drug therapy; Z87.442 Personal history of urinary calculi
CPT/HCPCS: 36415; 76775; 80048; 80053; 81001; 81003; 83605; 83735; 84702; 85025; 85027; 85610; 87040; 87086; 87635; 99285; C1758; C1769; C2617; J0696; J1100; J1170; J1885; J1956; J2250; J2270; J2405; J2765; J3010; Q9967

== ENCOUNTER 2020-12-24 10:57 | Day surgery (SDC) | payer BC, SELFPAY ==
[2020-12-24 11:19] VITALS: BMI 32.9
[2020-12-24 11:22] VITALS: BP 108/62; PULSE 88; RESP 16; TEMP 36.8; O2SAT 98
[2020-12-24 11:44] LABS: UPreg QC Valid YES; Urine Pregnancy NEGATIVE (NEGATIVE)
[2020-12-24] MEDS: levoFLOXacin 500 MG TABLET PO (12:24)
--- NOTE | 2020-12-24 13:46 | PC.NURSE ---
PATIENT GIVEN CITRIC ACID PO PER DR. VILLAREAL FOR COMPLAINT OF ACID REFLUX AFTER TAKING LEVOFLOXACIN.
[2020-12-24] MEDS: Lactated Ringers 500 ML 20 ML IVCONT (14:01)
--- NOTE | 2020-12-24 14:35 | MHC.SHP ---
Pre-Procedural Eval Section A Date of Service: 12/24/20 Section B Chief Complaint: Calculus of Kidney Allergies: Allergies Allergy/AdvReac Type Severity Reaction Status Date / Time No Known Allergies Allergy Verified 11/25/20 14:05 [No Known Allergies*] Plan I have reviewed the history and physical and performed a pertinent physical examination on my patient. No changes have occurred unless specified. Cystoscopy, stent removal from right with right retrograde.
[2020-12-24 15:10] VITALS: BP 125/81; PULSE 105; RESP 16; TEMP 37.1; O2SAT 98
--- NOTE | 2020-12-24 15:12 | P.OP_ITS ---
Operative Note Operative Note Date of Service: 12/24/20 Narrative: PreOperative Diagnosis: Right indwelling ureteric stent Post Operative Diagnosis: Right indwelling ureteric stent Procedure: Cystoscopy, right stent removal, right retrograde Surgeon: Dr Rio Styles Anesthesia: Sedation Indications for procedure: 40-year-old female. Had previously undergone removal of right distal ureteric stone at had impacted in the ureteric orifice. Removal had required incision of the ureteric orifice. She is here for stent removal in to ensure there is no scarring at the ureteric orifice. Procedure: After informed consent was verified the patient was brought to the operating room and placed in a supine position. Anesthesia was administered per protocol. A 22 Bulgarian cystoscope was inserted per urethra. The stent was seen exiting from the right ureteric orifice. This was grasped and removed. There was mild stent debris and some inflammation. The ureteric orifice was patent. A retrograde was performed. No proximal ureteric stricture seen. Dye was able to flow in an antegrade fashion and exit the ureteric orifice with peristalsis. Decision was made not to leave a stent. She tolerated procedure well and was transferred in stable condition to the recovery area. Pathology: None Drains: None
[2020-12-24] MEDS: NaPROXEN 500 MG TABLET PO (15:23)
[2020-12-24 15:25] VITALS: BP 123/81; PULSE 108; RESP 16; TEMP 37.1; O2SAT 97
== END 2020-12-24 15:50 | disposition home or self-care (01) ==
PROVIDERS: Visit Provider Urology
PROC: (CPT 52310; principal; 2020-12-24 13:30)
DX: Z46.6 Encounter for fitting and adjustment of urinary device (principal); N20.0 Calculus of kidney; Z87.891 Personal history of nicotine dependence; F12.90 Cannabis use, unspecified, uncomplicated; Z79.899 Other long term (current) drug therapy
CPT/HCPCS: 52310; 81025; J1100; J2250; J2405; J3010; Q9967